=== PATIENT | female | born 1975 | race Caucasian/White ===

== ENCOUNTER 2018-05-02 15:51 | Emergency (ER) | payer MEDICAID ==
[~2018-05-02] VITALS: Ht 157.5 cm; Wt 90.7 kg
[2018-05-02 15:51] VITALS: BP 129/85
[2018-05-02] MEDS ORDERED: LORAZEPAM 1 MG TABLET ONE (17:11)
[2018-05-02] MEDS ORDERED: LORAZEPAM 1 MG TABLET PO ONE (17:30)
== END 2018-05-02 17:43 | disposition home or self-care (01) ==
LOC: ER 15:57
DX: F41.9 Anxiety disorder, unspecified (principal); F31.9 Bipolar disorder, unspecified; G40.909 Epilepsy, unspecified, not intractable, without status epilepticus
CPT/HCPCS: 99284; A4606